=== PATIENT | female | born 1990 | race Caucasian/White ===

== ENCOUNTER 2019-12-16 00:51 | Observation (INO) | payer MEDICAID, OTHER ==
[~2019-12-16] VITALS: Ht 167.6 cm; Wt 93.9 kg
[2019-12-16] MEDS ORDERED: CALC-1042 PO (01:46)
[2019-12-16] MEDS ORDERED: LEVO25TA7 PO (01:46)
[2019-12-16] MEDS ORDERED: PREN-176 PO (01:46)
[2019-12-16] MEDS ORDERED: FERR-71 PO (01:46)
[2019-12-16] MEDS ORDERED: FOLI-43 PO (01:46)
[2019-12-16] MEDS ORDERED: ACETAMINOPHEN 500MG TABLET PO NR (02:45)
[2019-12-16 03:12] LABS: CLARITY URINE CLOUDY (CLEAR); COLOR URINE YELLOW (YELLOW); KETONES URINE NEGATIVE (NEGATIVE); LEUKOCYTE ESTERASE URINE NEGATIVE (NEGATIVE); NITRITE URINE NEGATIVE (NEGATIVE); OCCULT BLOOD URINE NEGATIVE (NEGATIVE); PROTEIN URINE NEGATIVE (NEGATIVE); SPECIFIC GRAVITY URINE 1.008 (1.005-1.030); UROBILINOGEN URINE 0.2 E.U./dL (0.2-1.0)
[2019-12-16] MEDS ORDERED: LACTATED RINGERS 1,000 ML IV SCH (04:30)
[2019-12-16] MEDS ORDERED: TERBUTALINE SULFATE 1MG/ML VIAL SUBCUT PRN (04:30)
== END 2019-12-16 07:00 | disposition home or self-care (01) ==
LOC: INTOOBSV 00:51 → 8 EST LDRP 00:51
PROVIDERS: ADMIT Obstetrics & Gynecology; ATTEND Obstetrics & Gynecology
DX: O26.893 Other specified pregnancy related conditions, third trimester (principal); R10.30 Lower abdominal pain, unspecified; Z3A.32 32 weeks gestation of pregnancy
CPT/HCPCS: 59025; 81003; 96360; 96361; 96372; G0378; J3105; 99281